=== PATIENT | female | born 1960 | race Caucasian/White ===

== ENCOUNTER → 2016-12-04 | Outpatient (CLI) | payer MEDICARE ==
[~2016-12-04] MED LIST: ADVAIR 2501 DISK W/D PO; ALBUTEROL17 GM INH; ATACAND PO; BUSPAR PO; FISH OIL 1,0001 CAP PO; LEVAQUIN750 MG PO; LYRICA200 MG PO; MAXZIDE 75/50 T1 TA1 PO; MAXZIDE 75/50 T1 TAB PO; PATANOL5 ML OU; PREVACID PO; RHINOCORT AQUA8.6 GM; SIMVASTATIN20 MG PO; SYNTHROID PO; TRIAMTERENE-HC1 EACH PO; TYLOX 5/500 CAP1 CAP PO; VICODIN 5/500 T1 TAB PO; ZOLOFT PO; ZYRTEC PO
--- NOTE | ~2016-12-04 | BD1 ---
[facility] A Service of [facility] RADIOLOGY TEXT RESULTS PATIENT: TONNY MCCAIN LOCATION: [facility] : 58 UNIT #: [id number] AGE: [address]: Em Mejia APRN SEX: F ORDER DR: [id number] [place], [place] [address] [id number] O MR#: [id number] Acc #: [id number] NAME: TONNY MCCAIN : 1960 SEX: F STUDY DATE/TIME: 12/04/2016 12:50 UNIT: [facility] ROOM: STUDY DESCRIPTION: BD Dexa Bone Dens 1+ Site Attending Physician: Em Mejia A.P.R.N. Referring Physician: Em Mejia A.P.R.N. Ordering Physician: Em Mejia A.P.R.N. Primary Care Physician: Bren Jacobs M.D. MEDICAL IMAGING REPORT This report is preliminary unless electronic signature is present EXAM DEXA scan 12/04/2016 HISTORY Status post menopause with no hormone replacement therapy. Osteopenia. Arthritis. Diabetes. Thyroid medication, levothyroxine use for 7 years. Hypertension with blood pressure medication for 10 years. Smoking history for 10 years. FINDINGS Bone mineral density in the lumbar spine from L1 through L4 is 1.479 g/cm2, which is 3.9 standard deviations above the mean when compared to the young adult reference population, which is within the range of normal. This is 5.1 standard deviations above the mean when compared to the age-matched population. Bone mineral density in the left femoral neck was 0.655 g/cm2, which is 1.7 standard deviations below the mean when compared to the young adult reference population, which is characteristic of osteopenia. This is 0.6 standard deviations below the mean when compared to the age-matched population. IMPRESSION Bone mineral density in the lumbar spine within the range of normal and within the left hip characteristic of osteopenia. HISTORY FINDINGS [facility] A Service of [facility] RADIOLOGY TEXT RESULTS PATIENT: TONNY MCCAIN LOCATION: [facility] : 58 UNIT #: [id number] AGE: [address]: Em Mejia APRN SEX: F ORDER DR: Dictated by... Wilmer Rubio M.D. THIS IS AN ELECTRONICALLY VERIFIED REPORT Wilmer Rubio M.D. at 12/05/2016 8:04 AM KRT/to TD: 12/04/2016 14:55 JOB #: [id number] MEDICAL IMAGING REPORT Page 1 of 1 COPY
== END | disposition home or self-care (01) ==
LOC: CWCC 12:34
DX: Z78.0 Asymptomatic menopausal state (principal); M85.88 Other specified disorders of bone density and structure, other site
CPT/HCPCS: 77080

== ENCOUNTER 2017-02-05 20:57 | Emergency (ER) | payer MEDICARE ==
--- NOTE | ~2017-02-05 | CT4 ---
[facility] A Service [facility] RADIOLOGY TEXT RESULTS PATIENT: TONNY MCCAIN LOCATION: [facility] : 58 UNIT #: [id number] AGE: [address]: Atif Cheung MD SEX: F ORDER DR: [id number] [address] [address] [id number] MR#: [id number] Acc #: [id number] NAME: TONNY MCCAIN : 1960 SEX: F STUDY DATE/TIME: 02/06/2017 2:01 UNIT: [facility] ROOM: STUDY DESCRIPTION: CT Abd and Pelv Wo Cont Attending Physician: Atif Cheung M.D. Ordering Physician: Atif Cheung M.D. Primary Care Physician: Bren Jacobs M.D. MEDICAL IMAGING REPORT This report is preliminary unless electronic signature is present EXAM CT abdomen and pelvis without contrast INDICATION Right lower abdominal and back pain with fever for the past [address] of the abdomen and pelvis. This CT examination was performed with one or more of the following radiation dose reduction techniques: automatic exposure control, adjustment of mA and/or kV according to patient size, and iterative reconstruction. COMPARISON None. FINDINGS ABDOMEN WITHOUT CONTRAST: Included lung bases clear. Liver, spleen, adrenal glands, pancreas show no acute abnormality. Previous cholecystectomy. Moderate colonic stool. Bowel loops are nondilated. No radiodense urinary system calculus or hydronephrosis. PELVIS WITHOUT CONTRAST: No radiodense bladder calculus. No pelvic mass or fluid. No aggressive appearing bone lesion. IMPRESSION No acute findings in the abdomen or pelvis. Dictated by... Keyshawn Blancas M.D. [facility] A Service [facility] RADIOLOGY TEXT RESULTS PATIENT: TONNY MCCAIN LOCATION: [facility] : 58 UNIT #: [id number] AGE: [address]: Atif Cheung MD SEX: F ORDER DR: THIS IS AN ELECTRONICALLY VERIFIED REPORT Keyshawn Blancas M.D. at 02/06/2017 10:29 PM DANILO/mann TD: 02/06/2017 08:41 JOB #: [id number] MEDICAL IMAGING REPORT Page 1 of 1 COPY
[2017-02-05 23:13] LABS: BASOPHIL# 0.1 X10e3 (0-0.3); DIFF IND NO; EOSINOPHIL# 0.3 X10e3 (0-0.7); EOSINOPHIL% 2.6 % (0.0-7.0); LYMPHOCYTE# 3.5 X10e3 (1.0-3.5); LYMPHOCYTE% 29.2 % (17.0-45.0); MEAN CELL VOLUME 92.8 FL (83-96); MEAN CORPUSCULAR HEMOGLOBIN 29.4 PG (28-34); MEAN CORPUSCULAR HGB CONC 31.7 g/dL (30-36); MEAN PLATELET VOLUME 8.8 FL (6.5-11.5); MONOCYTE# 0.9 X10e3 (0-1.0); MONOCYTE% 7.9 % (3.0-12.0); NEUTROPHIL% 59.3 % (40-75); PLATELET COUNT 275 X10e3 (140-420); RED BLOOD COUNT 4.42 X10e (3.90-5.30); RED CELL DISTRIBUTION WIDTH 14.6 % (11.0-15.5); WHITE BLOOD COUNT 11.9 X10e3 (4.0-10.5)
[2017-02-05 23:39] LABS: ALBUMIN SERUM 3.9 g/dL (3.5-5.0); BILIRUBIN,TOTAL 0.5 mg/dL (0.2-2.0); BUN/CREATININE RATIO 33.75; CALCIUM SERUM 9.3 mg/dL (8.4-10.2); CREATININE SERUM 0.8 mg/dL (0.6-1.4); GLOM FILT RATE Estimated 81.9 mL/min (>60); POTASSIUM 4.2 mmol/L (3.5-5.1); PROTEIN TOTAL SERUM 7.9 g/dL (6.0-8.3)
[2017-02-05 23:42] LABS: BILIRUBIN, DIRECT 0.1 mg/dL (0.0-0.2); BILIRUBIN,INDIRECT 0.4 mg/dL (0.0-0.9)
[2017-02-06 00:26] LABS: URINE SOURCE CLEAN CATCH
[2017-02-06 00:29] LABS: URINE APPEARANCE CLEAR; URINE BILIRUBIN NEG (NEG); URINE BLOOD NEG (NEG); URINE COLOR YELLOW; URINE GLUCOSE NEG (NEG); URINE KETONE NEG (NEG); URINE LEUKOCYTE ESTERASE 1+ (NEG); URINE NITRATE NEG (NEG); URINE PROTEIN NEG (NEG); URINE SPECIFIC GRAVITY 1.007 (1.003-1.035); URINE UROBILINOGEN 0.2 MG/DL (NEG)
[2017-02-06 00:32] LABS: CULTURE INDICATED? YES; URINE BACTERIA AUWI 1+ (NEGATIVE); URINE SQUAMOUS EPITHELIAL CELL OCC /[HPF]; UWBCS1 AUWI 0-2 (0-5)
== END 2017-02-06 03:25 | disposition home or self-care (01) ==
LOC: CED 20:57
DX: R10.31 Right lower quadrant pain (principal); I10 Essential (primary) hypertension; Z98.51 Tubal ligation status; Z90.49 Acquired absence of other specified parts of digestive tract; Z88.0 Allergy status to penicillin; Z88.2 Allergy status to sulfonamides; Z88.1 Allergy status to other antibiotic agents; Z79.899 Other long term (current) drug therapy
CPT/HCPCS: 36415; 74176; 80048; 80076; 81003; 83690; 85025; 87086; 96372; 99284; J1170

== ENCOUNTER → 2017-04-16 | Outpatient (CLI) | payer MEDICARE ==
[2017-04-16 12:38] LABS: CALCIUM SERUM 8.8 mg/dL (8.4-10.2); CREATININE SERUM 0.8 mg/dL (0.6-1.4); GLOM FILT RATE Estimated 81.9 mL/min (>60); POTASSIUM 3.8 mmol/L (3.5-5.1)
== END | disposition home or self-care (01) ==
LOC: CECH 04-12 09:30
PROVIDERS: Internal Medicine Interventional Cardiology
DX: R06.00 Dyspnea, unspecified (principal); G47.33 Obstructive sleep apnea (adult) (pediatric); R00.2 Palpitations; I10 Essential (primary) hypertension; I34.0 Nonrheumatic mitral (valve) insufficiency; I36.1 Nonrheumatic tricuspid (valve) insufficiency; I51.7 Cardiomegaly
CPT/HCPCS: 36415; 80048; 93306